=== PATIENT | male | born 1955 | race Caucasian/White ===

== ENCOUNTER 2016-03-12 10:15 | Emergency (ER) | payer OTHER ==
[~2016-03-12] VITALS: Ht 175.3 cm; Wt 90.7 kg
--- NOTE | 2016-03-12 11:13 | ED GENERAL ADULT ---
History of Present Illness General Chief Complaint: Syncope and Near-Syncope Stated Complaint: S/P FALL LAST PM Source: patient Exam Limitations: no limitations Vital Signs & Intake/Output Vital Signs & Intake/Output Vital Signs Date Time Temp Pulse Resp B/P Pulse O2 O2 Flow FiO2 Ox Delivery Rate 03/12 1400 70 20 155/72 98 03/12 1309 98.4 74 18 159/84 99 03/12 1030 98.8 76 18 145/81 99 Room Air Allergies Uncoded Allergies: NKDA (03/12/16) Reconcile Medications Atorvastatin Calcium 10 MG TABLET 1 TAB PO DAILY CHOLESTEROL (Reported) Triage Note: HAD SYNCOPAL EPISODE EARLY THIS AM, THEN FELL INTO COUNTER TOP, C/O PAIN IN R CHEST, AND BACK, WORSE ON INSPIRATION, COUGH. Triage Nurses Notes Reviewed? yes Onset: Gradual Duration: SECONDS Timing: remote history Injury Environment: home Severity: mild, moderate Severity Numbers: 5 Modifying Factors: Improves With: immobilization. Worsens With: movement. HPI: Patient is a 60-year-old male with history of hyperlipidemia presenting to the emergency department with chief complaint of syncopal episode that happened last night. He reports that he had 2 beers that were more alcoholic then normal beers, he had not indenter. He reports he got up this morning around 4 AM to use the bathroom started to urinate and the next thing he knew he was on the floor. His will come up seconds later. He thinks that he hit the left side of his head and his right ribs. He reports that the right rib pain is worse with deep inspiration. Denies noticing any bruising over the ribs. Denies any headaches or visual changes nausea vomiting chest pain or palpitations today. Denies taking anything to help with his symptoms. He does report remote history of syncopal episodes as a child but nothing recently. Denies any urinary incontinence during this episode. No numbness or tingling. No back pain or leg weakness. He decided to come in for evaluation today because the pain over his right ribs was getting worse. (ELDON JESUS,DENISE) Past History Travel History Traveled to [place] past 21 day No Medical History Any Pertinent Medical History? see below for history Neurological: NONE EENT: NONE Cardiovascular: NONE Respiratory: NONE Gastrointestinal: NONE Hepatic: NONE Renal: NONE Musculoskeletal: NONE Psychiatric: NONE Endocrine: NONE Surgical History Surgical History: non-contributory Psychosocial History What is your primary language Yi Tobacco Use: Never used ETOH Use: denies use Family History Hx Contributory? No (DENISE GUAJARDO) Review of Systems Review of Systems Constitutional: Reports: malaise. Comments Review of systems: See HPI, All other systems negative. Constitutional, no chills fever or weight loss HEENT: No visual changes no sore throat no congestion Cardiovascular: No palpitation , orthopnea or ankle swelling Skin, no jaundice no rashes Respiratory: No dyspnea cough sputum or hemoptysis GI: No nausea no vomiting : No dysuria No hematuria Muscle skeletal: no back pain, no neck pain, Neurologic: No numbness no confusion Psych: No stress anxiety or depression,. Heme/endocrine: No bruising no bleeding no polyuria or polydipsia Immunology: No splenectomy or history of AIDS (DENISE GUAJARDO) Physical Exam Physical Exam General Appearance: well developed/nourished, no apparent distress, alert, awake , comfortable Comments: Well-developed well-nourished person in no acute distress HEENT: extraocular motion intact, no nystagmus. Pupils equally round and reactive to light and accommodation. Nose is atraumatic. External auditory canal and Tympanic membranes clear. Pharynx normal. No swelling or edema. Neck: Supple, no lymphadenopathy, normal range of motion without pain or tenderness Back: Nontender, no CVA tenderness. Full range of motion Cardiovascular: Regular rate and rhythms no murmurs rubs or gallops, normal JVP Respiratory: Chest minimally tender over the right lateral rib. No respiratory distress.breath sounds clear to auscultation bilaterally Abdomen: Soft, nontender nondistended, no appreciable organomegaly. Normal bowel sounds. No ascites Extremity: No edema, no calf tenderness to palpation, normal and equal pulses. Muscular strength is 5 out of 5 in all extremity. Circular Knife Cutter Machine strength is equal and symmetric bilaterally. Neuro: Alert oriented x3, motor sensory normal, cranial nerves II through XII grossly intact. Cerebellar testing is unremarkable. Skin: No appreciable rash on exposed skin, skin is warm and dry. Psych: Mood and affect is normal, memory and judgment is normal. Core Measures ACS in differential dx? Yes CVA/TIA Diagnosis: No Severe Sepsis Present: No Septic Shock Present: No (DENISE GUAJARDO) Progress Differential Diagnoses I considered the following diagnoses in my evaluation of the patient: , PULMONARY embolus, dehydration, syncope, orthostatic hypotension, reaction from alcohol Plan of Care: Orders Procedure Date/time Status MISTAKE 03/12 111 Active Telemetry/Sewing Machine Mechanic 03/12 111 Active TROPONIN LEVEL 03/12 111 Complete PARTIAL THROMBOPLASTIN TIME 03/12 111 Complete PROTHROMBIN TIME 03/12 1112 Complete ETHANOL 03/12 111 Complete D-DIMER 03/12 111 Complete COMPREHENSIVE METABOLIC PANEL 03/12 1112 Complete CHOLESTEROL 03/12 1112 Complete CBC WITHOUT DIFFERENTIAL 03/12 1112 Complete EKG 03/12 1034 Active Laboratory Tests 03/12/16 1128: Anion Gap 6, Estimated GFR > 60, BUN/Creatinine Ratio 18.0, Glucose 126 H, Calcium 9.2, Total Bilirubin 0.6, AST 27, ALT 37, Alkaline Phosphatase 113, Troponin I < 0.01, Total Protein 7.4, Albumin 4.0, Globulin 3.4, Albumin/ Globulin Ratio 1.2, Cholesterol 150, PT 10.8, INR 1.03, APTT 28, D-Dimer 583 H, CBC w Diff NO MAN DIFF REQ, RBC 4.79, MCV 93.3, MCH 32.1 H, RDW 13.0, MPV 7.3 L, Gran % 72.1, Lymphocytes % 16.3 L, Monocytes % 8.9, Eosinophils % 1.8, Basophils % 0.9, Absolute Granulocytes 6.6 H, Absolute Lymphocytes 1.5, Absolute Monocytes 0.8 H, Absolute Eosinophils 0.2, Absolute Basophils 0.1, PUBS MCHC 34.4, Serum Alcohol < 10.0 Diagnostic Imaging: Viewed by Me: Radiology Read, CT Scan. Discussed w/RAD: Radiology Read, CT Scan. Radiology Impression: PATIENT: KIKO LICONA PRESENT AGE: 60 PATIENT ACCOUNT NO: [id number] : 55 LOCATION: [facility] ORDERING PHYSICIAN: DENISE JESUS SERVICE DATE: 03/12/16 EXAM TYPE: CAT - CT HEAD WO IV CONTRAST EXAMINATION: CT HEAD WITHOUT CONTRAST CLINICAL INFORMATION: Syncope. Head strike. COMPARISON: No relevant prior imaging is available. TECHNIQUE: Contiguous axial imaging was performed from the skull base to vertex without intravenous administration of contrast. DLP: 600.71 mGy-cm. FINDINGS: There is no acute intracranial hemorrhage or abnormal extra- axial collection. No intracranial mass effect or midline shift. Lateral and third ventricles are normal. No hydrocephalus. Florentino-white matter differentiation is preserved and there is no evidence of acute territorial infarct. The calvarium and skull base are intact. Mastoid air cells and middle ear cavities are well aerated. There is minimal paranasal sinus mucosal thickening within the ethmoid air cells. Globes and orbits are symmetric. IMPRESSION: Unremarkable CT scan of the head. No evidence of acute territorial infarct or hemorrhage., EXAMINATION: CT ANGIOGRAM OF THE CHEST WITH AND WITHOUT CONTRAST (CT PULMONARY ANGIOGRAM FOR PE) CLINICAL INFORMATION: Syncope with right-sided chest pain. COMPARISON: No pertinent prior studies are available for comparison. TECHNIQUE: Prior to contrast administration, noncontrast localization images were obtained. Subsequently, multidetector volumetric imaging was performed from the thoracic inlet to below the diaphragms following the administration of 86 mL Optiray 350 intravenous contrast. No contrast reaction reported Sagittal, coronal, and MIP oblique sagittal reformatted images were obtained on the CT workstation, uploaded to PACS, and reviewed. Total exam dose-length product 563 mGy-cm FINDINGS: QUALITY OF STUDY/CONTRAST BOLUS: Satisfactory. PULMONARY ARTERIES: Pulmonary arterial tree is well-opacified without evidence of underlying pulmonary emboli. THORACIC AORTA: Unremarkable. LUNG: There is subtle peripheral groundglass opacity in the bilateral upper lobes predominantly left side greater than right best seen on the thin section slices series #2 on the left side more than the right which may represent some evolving inflammatory changes, however neoplastic process is less likely although not excluded. There is a somewhat ill -defined under 5 mm ill-defined nodular focus in this region of the left upper lobe image 139 of series 2. A similar focus abuts the pleural surface anteriorly and laterally in the right upper lobe image 201 of series 2. There are mild centrilobular emphysematous changes involving the bilateral upper lobes. The above findings may be related to chronic obstructive pulmonary disease. PLEURA: No pleural effusion or pneumothorax. MEDIASTINUM: Normal heart size. There is fairly extensive atherosclerotic coronary calcification. No pericardial effusion. No hilar or mediastinal lymphadenopathy. There are a few scattered calcified under 5 mm calcified nodes suggesting previous granulomatous exposure. There is a small sliding hiatal hernia. CHEST WALL/AXILLA: No axillary or internal mammary lymphadenopathy. OSSEOUS STRUCTURES: No focal osseous lesions are seen. There is spondylosis in the thoracic spine and the bones appear mildly osteopenic. There is a subtle compression deformity of a single mid to lower thoracic vertebra with a prominent central Schmorl's node. UPPER ABDOMEN: Unremarkable. No reflux of contrast into the hepatic veins to suggest elevated right heart pressures. IMPRESSION: 1. No pulmonary arterial filling defects to suggest pulmonary emboli. 2. Mild emphysematous changes with peripheral scattered groundglass opacities and increased interstitial markings somewhat nodular in appearance. Short interval follow-up in 3-6 months time is recommended. 3. Fairly extensive coronary arterial calcifications. 4. Small sliding hiatal hernia. Initial ED EKG: SINUS RHYTHM AT 77 BPM, NONSPECIFIC INTERVENTRICULAR CONDUCTION DELAY Prior EKG: changed (NON SPECIFIC) Comments: Patient medicated with IV fluids on arrival. Orthostatics are negative. Vitals are within normal range. EKG sinus rhythm, no significant changes from previous EKG. Patient will go for a chest x-ray to rule out fracture, blood work obtained to rule out anemia which can cause syncopal episodes. Patient will be monitored on the small animal veterinarian for any cardiac arrhythmia. Patient sterilely symptomatically sign. No arrhythmia visualized on small animal veterinarian until this point. Patient still feeling well. D-dimer is elevated. Patient will go for CT scan to rule out pulmonary blessed. Patient was informed of all imaging and lab results. Definite etiology of syncope is unclear at this time although patient did report drinking alcoholic beverages prior to going to bed last night and eating and drinking little before that. Patient could've been dehydrated and had an episode of orthostatic hypotension or vasovagal episode. Patient will follow-up with his primary care physician. Discussed with and he agrees to plan. Patient will return for any worsening symptoms or concerns. (ELDON JESUS,DENISE) Departure Departure Time of Disposition: 1437 Disposition: HOME OR SELF CARE Condition: Stable Clinical Impression Primary Impression: Syncope Qualifiers: Syncope type: unspecified Qualified Code: R55 - Syncope and collapse Secondary Impressions: Rib pain Referrals: SANDRA HODGES MD (PCP/Family) Additional Instructions: Follow-up with your primary care physician call to make an appointment. Increase fluids. Take Motrin at home as instructed for any aches or pains. Apply warm compresses over affected area. Return for worsening symptoms or concerns. He'll informed of imaging results. Any incidental findings need to be followed up by YOUR primary care physician. Departure Forms: Customer Survey General Discharge Information (DENISE GUAJARDO) PA/LEGAL INSTRUMENTS EXAMINER Co-Sign Statement Statement: ED Attending supervision documentation- [] I saw and evaluated the patient. I have also reviewed all the pertinent lab results and diagnostic results. I agree with the findings and the plan of care as documented in the PA's/LEGAL INSTRUMENTS EXAMINER's documentation. x I have reviewed the ED Record and agree with the PA's/LEGAL INSTRUMENTS EXAMINER's documentation. [] Additions or exceptions (if any) to the PAs/LEGAL INSTRUMENTS EXAMINER's note and plan are summarized below: [] (SAJAN PEDRAZA,ANNE MARIE) Critical Care Note Critical Care Note Critical Care Time: 30-74 min (DENISE GUAJARDO)
[2016-03-12] MEDS ORDERED: ATORVASTATIN CA10 M1 PO (11:24)
[2016-03-12 11:36] LABS: ABSOLUTE BASOPHIL COUNT 0.1 /CUMM (0.0-0.2); ABSOLUTE EOSINOPHIL COUNT 0.2 /CUMM (0.0-0.7); ABSOLUTE GRANULOCYTE CT 6.6 /CUMM (1.4-6.5); ABSOLUTE LYMPH COUNT 1.5 /CUMM (1.2-3.4); ABSOLUTE MONOCYTE COUNT 0.8 /CUMM (0.10-0.60); BASOPHIL % 0.9 % (0.0-2.0); EOSINOPHIL % 1.8 % (0-5); GRANULOCYTE % 72.1 % (42.2-75.2); HEMATOCRIT 44.7 % (42-52); MEAN CORPUSCULAR HGB 32.1 PG (27.0-31.0); MEAN CORPUSCULAR HGB CONC 34.4 G/DL (33.0-37.0); MEAN CORPUSCULAR VOLUME 93.3 FL (80.0-94.0); MEAN PLATELET VOLUME 7.3 FL (7.4-10.4); PLATELET COUNT 190 /CUMM (130-400); RED BLOOD CELL CT 4.79 /CUMM (4.70-6.10); WHITE BLOOD CELL COUNT 9.2 /CUMM (4.8-10.8)
[2016-03-12 11:54] LABS: PT 10.8 SEC (9.4-12.5); PTT 28 SEC (25-37)
--- NOTE | 2016-03-12 12:03 | RADIOLOGY REPORT ---
EXAMINATION: XR CHEST CLINICAL INFORMATION: Simple be involved, question rib fracture. Evaluate for cardiomegaly. COMPARISON: None currently available. TECHNIQUE: PA and lateral views of the chest were obtained. FINDINGS: The cardiomediastinal silhouette is within normal limits. The lungs and pleural spaces appear clear. There is no evidence of pneumothorax or pulmonary edema. Included osseous structures appear largely unremarkable. IMPRESSION: No acute intrathoracic process is identified. No rib fracture identified on these images, if concern persists, a dedicated rib series is recommended.
--- NOTE | 2016-03-12 13:06 | CT SCAN REPORT ---
EXAMINATION: CT HEAD WITHOUT CONTRAST CLINICAL INFORMATION: Syncope. Head strike. COMPARISON: No relevant prior imaging is available. TECHNIQUE: Contiguous axial imaging was performed from the skull base to vertex without intravenous administration of contrast. DLP: 600.71 mGy-cm. FINDINGS: There is no acute intracranial hemorrhage or abnormal extra-axial collection. No intracranial mass effect or midline shift. Lateral and third ventricles are normal. No hydrocephalus. Florentino-white matter differentiation is preserved and there is no evidence of acute territorial infarct. The calvarium and skull base are intact. Mastoid air cells and middle ear cavities are well aerated. There is minimal paranasal sinus mucosal thickening within the ethmoid air cells. Globes and orbits are symmetric. IMPRESSION: Unremarkable CT scan of the head. No evidence of acute territorial infarct or hemorrhage.
[2016-03-12 14:00] VITALS: BP 155/72
--- NOTE | 2016-03-12 14:08 | CT SCAN REPORT ---
EXAMINATION: CT ANGIOGRAM OF THE CHEST WITH AND WITHOUT CONTRAST (CT PULMONARY ANGIOGRAM FOR PE) CLINICAL INFORMATION: Syncope with right-sided chest pain. COMPARISON: No pertinent prior studies are available for comparison. TECHNIQUE: Prior to contrast administration, noncontrast localization images were obtained. Subsequently, multidetector volumetric imaging was performed from the thoracic inlet to below the diaphragms following the administration of 86 mL Optiray 350 intravenous contrast. No contrast reaction reported Sagittal, coronal, and MIP oblique sagittal reformatted images were obtained on the CT workstation, uploaded to PACS, and reviewed. Total exam dose-length product 563 mGy-cm FINDINGS: QUALITY OF STUDY/CONTRAST BOLUS: Satisfactory. PULMONARY ARTERIES: Pulmonary arterial tree is well-opacified without evidence of underlying pulmonary emboli. THORACIC AORTA: Unremarkable. LUNG: There is subtle peripheral groundglass opacity in the bilateral upper lobes predominantly left side greater than right best seen on the thin section slices series #2 on the left side more than the right which may represent some evolving inflammatory changes, however neoplastic process is less likely although not excluded. There is a somewhat ill-defined under 5 mm ill-defined nodular focus in this region of the left upper lobe image 139 of series 2. A similar focus abuts the pleural surface anteriorly and laterally in the right upper lobe image 201 of series 2. There are mild centrilobular emphysematous changes involving the bilateral upper lobes. The above findings may be related to chronic obstructive pulmonary disease. PLEURA: No pleural effusion or pneumothorax. MEDIASTINUM: Normal heart size. There is fairly extensive atherosclerotic coronary calcification. No pericardial effusion. No hilar or mediastinal lymphadenopathy. There are a few scattered calcified under 5 mm calcified nodes suggesting previous granulomatous exposure. There is a small sliding hiatal hernia. CHEST WALL/AXILLA: No axillary or internal mammary lymphadenopathy. OSSEOUS STRUCTURES: No focal osseous lesions are seen. There is spondylosis in the thoracic spine and the bones appear mildly osteopenic. There is a subtle compression deformity of a single mid to lower thoracic vertebra with a prominent central Schmorl's node. UPPER ABDOMEN: Unremarkable. No reflux of contrast into the hepatic veins to suggest elevated right heart pressures. IMPRESSION: 1. No pulmonary arterial filling defects to suggest pulmonary emboli. 2. Mild emphysematous changes with peripheral scattered groundglass opacities and increased interstitial markings somewhat nodular in appearance. Short interval follow-up in 3-6 months time is recommended. 3. Fairly extensive coronary arterial calcifications. 4. Small sliding hiatal hernia.
== END 2016-03-12 14:47 ==
LOC: ERH 10:15
PROVIDERS: Physician Assistant
DX: R55 Syncope and collapse (principal); R07.81 Pleurodynia
CPT/HCPCS: 93005; 93010; 96360; G0480